=== PATIENT | female | born 1960 | race Caucasian/White ===

== ENCOUNTER → 2017-05-08 | Outpatient (CLI) | payer BC | LOC: ULTRA 09:01 | DX: I82.812 Embolism and thrombosis of superficial veins of left lower extremity (principal) ==

== ENCOUNTER 2021-05-11 09:24 | Day surgery (SDC) | payer BC ==
[~2021-05-11] VITALS: Ht 167.6 cm; Wt 77.1 kg
--- NOTE | ~2021-05-11 | O ---
[facility] [place] [address] OPERATIVE REPORT Name: JULES LARKIN Room #: DEP [facility].#: [id number] Admission: 05/11/21 Attend Phys: Cecil Wilson MD Discharge: 05/11/21 Date of : 56 Report #: [id number] THIS REPORT FOR: cc: Pro Cao,Cecil Cooney MD ~ cc: Pro Cao MD DATE OF SERVICE: 05/11/2021 PREOPERATIVE DIAGNOSIS: Large mass/lipoma, left proximal upper arm and back. POSTOPERATIVE DIAGNOSIS: Large mass/lipoma, left proximal upper arm and back. PROCEDURE: Excision of a large lipoma measuring 7 x 11 cm. SURGEON: Cecil Wilson MD. ANESTHESIA: IV sedation, 0.25% Marcaine. COMPLICATIONS: None. ESTIMATED BLOOD LOSS: 5 mL DESCRIPTION OF PROCEDURE: With the patient under IV sedation, the patient was placed in the lateral left side up position. The left posterior arm was exposed, prepped and draped in sterile fashion. Timeout was performed. Preoperative IV antibiotic was administered. 0.25% Marcaine was used to anesthetize the skin and subcuticular tissue. An skin incision was made. After incising through the skin and the superficial fat, the lipoma was identified. The lipoma was multilobulated. The lipoma had a nice capsule around it. Posteriorly towards the back, the lipoma was able to be without difficulty. It did not have any extensions. More distally, the lipoma had extensions into the subcutaneous tissue that require removing of all these lobulated portions. The mass was completely excised. Irrigation was performed. The mass measured 7 x 11 cm. This is sent to the pathology. It grossly feels normal, not suspicious. The subcutaneous tissue was closed with 4-0 PDS. Skin was closed with 5-0 PDS running subcuticular fashion. Skin glue, Dermabond was applied. Telfa, 4 x 4, Op-Site was used for dressing. The patient was awakened and taken to recovery room, tolerated the procedure well. By: [id number] [id number] Cecil Wilson MD /nt
[~2021-05-11 09:24] MED LIST: ATORVASTATIN CA20 MG PO; CHILDREN'S ASPI81 M1 PO; PRINIVIL40 MG PO
[2021-05-11 10:39] VITALS: BP 176/89
--- NOTE | 2021-05-11 11:39 | EKG ---
[address] [address] ELECTROCARDIOGRAM REPORT Name: JULES LARKIN Room #: 150-2 [facility]#: [id number] Admission: 05/11/21 Attend Phys: Cecil Wilson MD Discharge: Date of : 56 Report #: [id number] [facility] Test Date: 2021-05-11 Test Time: 10:04:34 Pat Name: JULES LARKIN Department: Room: [facility] Gender: F Coat Room Attendant: ALLISON : 1960 Requested By: Cecil Wilson Order Number: [id number] : Claude Santana Measurements Intervals [place] Rate: 68 P: 41 SC: 159 QRS: 35 QRSD: 95 T: 12 QT: 404 QTc: 430 Interpretive Statements Sinus rhythm No previous ECG available for comparison Electronically Signed On 05-11-2021 11:39:12 CDT by Claude Santana [email or web address] <ELECTRONICALLY SIGNED> By: Claude Santana MD, [facility] 05/11/21 1139 1004 1004 Claude Santana MD, FACC /EPI
[2021-05-11] MEDS ORDERED: HYDROCODON-ACE1 EAC7 PO (12:10)
[2021-05-11 12:24] VITALS: BP 176/89
--- NOTE | 2021-05-13 18:07 | PATH ---
[facility] [address] [place] [address] PATHOLOGY RPT PROCEDURE Name: JULES LARKIN Jude Room #: DEP [facility] M.R.#: [id number] Admission: 05/11/21 Date of : 56 Discharge: 05/11/21 Report #: [id number] Path Case #: [id number] [facility] Accession Number: [id number] . 01 Material submitted: . arm - LEFT UPPER ARM LIPOMA. Modifiers: left, upper . 01 Clinical history: . EXCISION MASS LIPOMA LEFT UPPER ARM . 02 Diagnosis: Mature adipose tissue, left upper arm lipoma, excision: - Lipoma with congestion and reactive changes. (IUV:cue selector; 05/13/2021) MBR 05/13/2021 1550 Local . 02 Electronically signed: . Dinah Granados MD, Pathologist NPI- [id number] . 01 Gross description: . Fixative: Formalin Labeled: Left upper arm lipoma Specimen received: A guzman-yellow lobulated fatty tissue segment Dimensions: 70 g and measuring 8.5 x 6.5 x 3.4 cm External surface: Guzman-yellow focally disrupted. Inked green. Cut surface: Guzman-yellow lobulated and rubbery . [employer] sections are submitted in A1-A4. (MRF; 05/12/2021) MFE/MFE 05/12/2021 [facility] Local . 02 Pathologist provided ICD-10: D17.22 . 02 CPT . 165132 Specimen Comment: A courtesy copy of this report has been sent to [phone], [phone] Specimen Comment: [id number] Specimen Comment: Report sent to / DR SWENSON Performed at: [address] [id number] MD Chris Eldridge MD Phone: [phone] Performed at: [address] [id number] PATHOLOGY RPT PROCEDURE Name: JULES LARKIN Room #: DEP [facility] Arias.#: [id number] Admission: 05/11/21 Date of : 56 Discharge: 05/11/21 Report #: [id number] Path Case #: [id number] [address] [id number] MD Dinah Granados MD Phone: [phone]
== END 2021-05-11 12:35 | disposition home or self-care (01) ==
LOC: OR 09:24 → TBA 09:27 → OR 11:24
PROVIDERS: ATTEND Surgery
DX: D17.22 Benign lipomatous neoplasm of skin and subcutaneous tissue of left arm (principal); I10 Essential (primary) hypertension; E78.00 Pure hypercholesterolemia, unspecified; Z98.890 Other specified postprocedural states; Z79.899 Other long term (current) drug therapy; Z79.82 Long term (current) use of aspirin
CPT/HCPCS: 50010; 50101; 50403; 54118; 56524; 56525; 62110; 62850; 70005

== ENCOUNTER → 2021-08-09 | Outpatient (CLI) | payer BC ==
[~2021-08-09] MED LIST changes: +HYDROCODON-ACE1 EAC7 PO
== END ==
LOC: BC 13:28
PROVIDERS: ATTEND Nurse Practitioner
DX: Z12.31 Encounter for screening mammogram for malignant neoplasm of breast (principal)